=== PATIENT | female | born 1965 ===

== ENCOUNTER 2024-05-01 10:50 | Day surgery (SDC) | payer OTHER, MEDICAID, SELFPAY ==
[2024-04-30 12:24] VITALS: BMI 30.5
[2024-05-01] VITALS (9 sets, daily range): BP systolic 121–135; BP diastolic 59–74; PULSE 51–72; RESP 10–17; TEMP 36.3; O2SAT 94–100; BMI 30.5
[2024-05-01] MEDS: LACTATED RINGERS 1,000 ML 42 ML IV (11:51)
--- NOTE | 2024-05-01 12:08 | P.HP_ITS ---
History of Present Illness History of Present Illness Date Patient Seen: 05/01/24 Time Patient Seen: 12:08 Chief complaint: Bilateral carpal tunnel release Narrative: The patient is a 58-year-old female that presents with bilateral carpal tunnel syndrome, longstanding and proximally equal. She has been battling this for 15 years and gradually stopped doing activities that exacerbated her condition. She is stopped knitting 10 years ago. She is only able to play her ukulele for 10 minutes. Recently stopped riding her bike which is what brought her in to seek medical treatment. She has had physical therapy previously that did not help. She continues a home exercise program and has used ice and a brace without help. She gets numbness while driving. She had an EMG/nerve conduction study that demonstrated bilateral carpal tunnel syndrome. [facility] Medical History (Updated 05/01/24 @ 12:11 by Diann Harris MD) Bilateral carpal tunnel syndrome HLD (hyperlipidemia) Depression GERD (gastroesophageal reflux disease) Surgical History History of breast augmentation History of History of hysterectomy Social History household members: spouse Smoking Status: Never smoker alcohol intake: current Meds Home Medications and Allergies Home Medications Medication Instructions Recorded Confirmed Type alprazolam 0.5 mg tablet 0.5 mg PO TID 04/30/24 05/01/24 History bupropion HCl 100 mg tablet,12 hr 100 mg PO BID 04/30/24 05/01/24 History sustained-release buspirone 10 mg tablet 10 mg PO BID 04/30/24 05/01/24 History pregabalin 25 mg capsule 25 mg PO TID 04/30/24 05/01/24 History rosuvastatin 40 mg tablet 40 mg PO DAILY 04/30/24 05/01/24 History Allergies Allergy/AdvReac Type Severity Reaction Status Date / Time No Known Drug Allergies Allergy Verified 05/01/24 11:52 Review of Systems Review of Systems ROS: Yes All systems reviewed with the patient and are negative except as otherwise documented Exam Vital Signs (past 8 hours): - 05/01/24 11:38 Temperature 97.4 F L Pulse Rate 51 L Respiratory Rate 16 Blood Pressure 124/71 Pulse Oximetry 100 Oxygen Delivery Method Room Air Oxygen Delivery Method Room Air Narrative Exam Narrative: Alert oriented female in no acute distress. Extremities warm and well perfused. Respirations unlabored on room air lungs clear to auscultation bilaterally. Heart regular rate and rhythm. Right upper extremity normal alignment no swelling. Full range of motion of the wrist extension 70? and flexion 70?. Positive Durkan's compression test reproduces median nerve symptoms. Numbness 1st 3 digits. Intact sensation ulnar and radial. No atrophy. Left upper extremity grossly normal alignment positive Durkan's compression test. Symptoms reproduced in the median distribution. Sensation intact in radial ulnar distributions. Normal wrist flexion and extension. No atrophy. Very small dorsal superficial abrasion. Assessment & Plan Assessment and plan (1) Bilateral carpal tunnel syndrome: Status: Acute Plan The patient has bilateral carpal tunnel syndrome nonresponsive to conservative treatment with a home exercise program, physical therapy, bracing, ice, activity modifications. Symptoms are persistent. EMG and nerve conductions done he demonstrated prolonged median motor nerve reduced amplitude and prolonged distal peak latency impression bilateral carpal tunnel syndrome without evidence of ulnar neuropathy. Her symptoms are reproducible with normal daily activities and/or activity inhibiting. We discussed options. She would like to proceed with carpal tunnel release. We discussed staged versus simultaneous release. She requests simultaneous carpal tunnel release. Plan for bilateral open time we will tennis carpal tunnel release. Discussed wound healing takes approximately 2 weeks but may take about 6 weeks for power ramp agent and soreness can persist at the incision site for months. We discussed nerve symptoms and variability of recovery. She agrees with the plan. Consent was signed. Raheel on for surgery. Time-Based Coding :: [TOTAL MINUTES] spent with patient and on the chart (including review of chart, obtaining history, exam, reviewing outside data, placing orders, documenting exam and treatment plan, and counseling patient) on [DATE].
[2024-05-01] MEDS: CEFAZOLIN 2 GM/100 ML PREMIX 100 ML IV (12:29)
[2024-05-01] MEDS: LIDOCAINE 1% W/EPI 20 ML INJ (12:40)
--- NOTE | 2024-05-01 12:42 | SUR.OPER ---
Supine on padded OR bed, head on pillow, arms <90 degrees abduction draped into field, legs uncrossed, safety belt at thigh, tape over blanket over lower legs.
[2024-05-01] MEDS: BUPIVACAINE 0.25% (PF) VIAL 10 ML INJ (12:59)
--- NOTE | 2024-05-01 13:22 | P.OP_ITS ---
Operative Date/Time/Diagnoses Date of procedure: 05/01/24 Time of procedure: 12:55 Pre-op diagnosis: Bilateral carpal tunnel syndrome Post-op diagnosis: same Procedure & Clinicians Procedure: Carpal tunnel release right CPT code [id number] Carpal tunnel release left cpt 53657 left Modifier 50 bilateral surgery Same procedure as scheduled: Yes Indications: The patient is a 58-year-old female with bilateral syndrome refractory to conservative treatments. She has been indicated for bilateral carpal tunnel release and it was requested simultaneous surgery. The risks and benefits of the procedure have been discussed with the patient and given the opportunity to ask questions. The risks of surgery include but are not limited to infection, persistence of pain, damage to nerves and blood vessels, DVT, PE, cardiopulmonary complications and . The patient expressed a thorough understanding of the risks and benefits of surgery and has elected to proceed. Consent was signed. Surgeon: Diann Harris Click Yes if Unassisted: Yes Anesthesia Type: General and Local Operative Notes Findings: Thickened carpal tunnel transverse carpal ligament and palmar fascia bilaterally. Complete proximal and distal release confirmed on the right and left sides after carpal tunnel release. Closure Type: primary Specimen(s): none sent Estimated Blood Loss (mL): 2 Blood products transfused: none Tourniquet time (min): 8 Procedure in detail: Carpal tunnel release CPT code 29559 bilateral, right and left procedures performed The patient was seen and evaluated in the preoperative area. The site of surgery and informed consent were confirmed. This was the right and left hands. The surgical sites were marked. The patient was brought back to the operating room by the anesthesia team. Anesthetic for sedation was given. The operative right upper extremity was prepped on the hand table. A formal time-out procedure was performed confirming the patient's side and site of surgery and presence of informed consent. This is a clean outpatient hand surgery no preoperative antibiotics were indicated. A well-padded forearm tourniquet was placed. 10 cc of a 50 50 mixture 1% lidocaine and 0.25% Marcaine with epinephrine were infiltrated. The planned skin incision was marked out along the patient's palm and this was the intersection of the longitudinal line between the ring and middle fingers and Davison's line. This was approximately 3 cm long. Skin incision was then made and dissection carried out with a scalpel through the skin subcutaneous tissue to the palmar fascia. The palmar fascia was then sharply divided. Bleeding points were identified and cauterized with bipolar electrocautery. Retractors were then placed to allow deep dissection and further division of the palmar fascia. Once this was completed transverse carpal ligament was visualized. This was grossly thickened. This was divided longitudinally under direct visualization. The scissors were then utilized for full proximal and distal extent release of the transverse carpal ligament. This was protected Cherokee within the carpal tunnel deep. The release distally was completed to the fat and proximally into the distal forearm to the antebrachial fascia was released. The carpal canal were inspected. The median nerve was mildly flattened with slight hourglass shaped deformity. No other abnormalities were noted. No masses were noted. The wounds were irrigated with normal saline. The skin incision was closed with interrupted 4 0 Monocryl and then 4 0 nylon suture. The wound was dressed with Xeroform gauze and Tegaderm dressing followed by webril and Tomas wrap. Tourniquet was deflated at the time of closure and hemostasis achieved prior to closure. After the right side was completed attention was turned to the left upper extremity. The left upper extremity was positioned on the padded [place]. Forearm tourniquet was placed. A 10 cc mixture of 50 51% lidocaine and 25% Marcaine with epinephrine were infiltrated. Planned skin incision was marked out along the patient's palm this was the intersection of the longitudinal line between the ring and middle fingers and Davison's line. Dissection was carried out through the skin subcutaneous tissue to the palmar fascia. The palmar fascia was sharply divided. Bleeding points were cauterized with the bipolar cautery. In the palmar fascia was divided deeper. Then the transverse carpal ligament was visualized this was extremely thickened. This was carefully divided longitudinally under direct visualization then the Cherokee was placed underneath to protect the carpal tunnel contents for complete release. Scissors were used to release the full extent proximally and distally of the transverse carpal ligament and into the antebrachial fascia proximally. No masses were noted. The median nerve did have a slightly hourglass deformity. No other abnormalities noted. Tourniquet was released hemostasis was achieved. Wound was closed with 4-0 Monocryl and 4-0 nylon suture. The same dressing with Xeroform gauze and Tegaderm with Webril and Tomas wrap was applied. All counts were correct. Drapes removed and patient was woken from anesthesia and taken to recovery room in good condition. There no immediate complications to this procedure. Complications: none Post-operative Condition: stable Disposition: PACU Plan for aftercare: Postoperative instructions are to keep the dressing in place may remove it on day 3 and cover in shower. May cover with a Band-Aid. Limit lifting to less than 5 lb. Work on finger exercises daily for range of motion. Follow-up in 10-14 days for suture removal. May need pain medication for the 1st few days but then we did plain Tylenol and ibuprofen as soon as possible.
[2024-05-01] MEDS: ONDANSETRON 4 MG/2 ML INJ IV (13:56)
[2024-05-01] MEDS: OXYCODONE IR 5 MG TABLET PO (13:56)
--- NOTE | 2024-05-01 14:06 | SUR.PREOP ---
Block start time [1349] . Monitoring initiated and maintained throughout procedure. Oxygen and medications given per anesthesiologist instructions. Patient remained stable throughout procedure, no adverse reactions noted. Block end time [1359].
== END 2024-05-01 14:34 | disposition home or self-care (01) ==
PROVIDERS: Referring Provider Orthopaedic Surgery Foot and Ankle Surgery; Visit Provider Orthopaedic Surgery Foot and Ankle Surgery
PROC: (CPT 64721; principal; 2024-05-01 12:15)
DX: G56.03 Carpal tunnel syndrome, bilateral upper limbs (principal); G89.18 Other acute postprocedural pain
CPT/HCPCS: 64721; 64450; J0690; J1100; J2405; J2704; J3010